=== PATIENT | female | born 2005 | race Caucasian/White ===

== ENCOUNTER 2023-02-21 15:02 | Emergency (ER) | payer BC, SELFPAY ==
--- NOTE | ~2023-02-21 | CT_ITS ---
EXAMINATION: CT ABDOMEN AND PELVIS WITH CONTRAST CLINICAL INFORMATION: Periumbilical/suprapubic/right lower quadrant abdominal pain. COMPARISON: None available. TECHNIQUE: Multidetector volumetric images were obtained from the superior aspect of the liver through the pubic symphysis following administration 85 mL of Omnipaque 350 intravenous contrast. Sagittal and coronal reformatted images were obtained on the technologist's workstation. Oral contrast: No This CT examination was performed using dose optimization techniques as appropriate, variously including the following: *Automated exposure control *Adjustment of mA and/or kV according to patient size (this includes techniques or standardized protocols for targeted exams where dose is matched to indication/reason for exam; i.e. extremities or head) *Use of iterative reconstruction technique DLP: 776 mGy-cm FINDINGS: LUNG BASES: No focal consolidation or pleural effusion. LIVER, GALLBLADDER, AND BILIARY TREE: The liver is normal in size, shape, and attenuation. No focal hepatic lesion or biliary ductal dilatation is present. The gallbladder is unremarkable with no evidence of radiopaque gallstones, gallbladder wall thickening, or obvious pericholecystic inflammatory changes. PANCREAS: Unremarkable. SPLEEN: Unremarkable. ADRENAL GLANDS: Unremarkable. KIDNEYS AND URETERS: Equivocal very subtle asymmetric hypoattenuation of the renal parenchyma in the lateral interpolar right kidney. No nephrolithiasis or hydronephrosis. No significant perinephric fat stranding. BLADDER: Unremarkable. GASTROINTESTINAL TRACT: The small and large bowel are unremarkable. The appendix is unremarkable. ABDOMINAL WALL: No significant hernia is appreciated. LYMPH NODES: Normal. VASCULAR: Unremarkable. PELVIC VISCERA: Unremarkable. OSSEOUS STRUCTURES: Unremarkable. CT/CT abdomen pelvis w IV con IMPRESSION: 1. Equivocal very subtle asymmetric hypoattenuation of the renal parenchyma in the lateral interpolar right kidney. Correlate clinically for pyelonephritis. 2. Otherwise, normal examination.
--- NOTE | ~2023-02-21 | US_ITS ---
EXAMINATION: US PELVIS CLINICAL INFORMATION: Lower abdominal pain. COMPARISON: None available. TECHNIQUE: Ultrasound of the pelvis is performed using both transabdominal and transvaginal transducers along with Doppler. Transvaginal imaging is performed due to inadequate visualization transabdominally. FINDINGS: Uterus: The uterus is anteverted and measures 9.8 x 3.4 x 3.9 cm. The double wall endometrial thickness is 4 mm. The uterus is smooth in contour and has normal myometrial echogenicity. No visible fibroid. Adnexa: Both ovaries are visualized. There is normal color flow to the adnexa. There is no ovarian torsion. There is no pelvic ascites or fluid collection. Right ovary measures 4.3 x 2.2 x 2.5 cm. Volume of 12.4 mL. Left ovary measures 4.0 x 2.9 x 3.0 cm. Volume of 18 mL. US/US pelvic and transvaginal IMPRESSION: No acute sonographic abnormalities to explain the patient's symptoms.
--- NOTE | ~2023-02-21 | US_ITS ---
EXAMINATION: US PELVIS CLINICAL INFORMATION: Lower abdominal pain. COMPARISON: None available. TECHNIQUE: Ultrasound of the pelvis is performed using both transabdominal and transvaginal transducers along with Doppler. Transvaginal imaging is performed due to inadequate visualization transabdominally. FINDINGS: Uterus: The uterus is anteverted and measures 9.8 x 3.4 x 3.9 cm. The double wall endometrial thickness is 4 mm. The uterus is smooth in contour and has normal myometrial echogenicity. No visible fibroid. Adnexa: Both ovaries are visualized. There is normal color flow to the adnexa. There is no ovarian torsion. There is no pelvic ascites or fluid collection. Right ovary measures 4.3 x 2.2 x 2.5 cm. Volume of 12.4 mL. Left ovary measures 4.0 x 2.9 x 3.0 cm. Volume of 18 mL. US/US pelvic ovarian doppler IMPRESSION: No acute sonographic abnormalities to explain the patient's symptoms.
[2023-02-21 15:39] VITALS: BP 129/81; PULSE 85; RESP 16; TEMP 36.7; O2SAT 99; BMI 36.6
--- NOTE | 2023-02-21 15:42 | ED.ABDPAIN ---
HPI - Abdominal Pain General Chief Complaint: Abdominal Pain <ERIN Brito Last Filed: 02/21/23 15:46> Stated Complaint: Severe abd pain <ERIN Brito Last Filed: 02/21/23 15:46> Time Seen by Provider: 02/21/23 18:36 <ERIN Brito Last Filed: 02/21/23 15:46> Source: patient <ERIN Donald Last Filed: 02/21/23 21:31> Mode of arrival: ambulatory <ERIN Donald Last Filed: 02/21/23 21:31> Limitations: no limitations <ERIN Donald Last Filed: 02/21/23 21:31> History of Present Illness HPI narrative: 17-year-old female history of obesity presents with complaints of nausea,, vomiting, anorexia, abdominal pain x3 days progressively worsening. Pain started in the epigastric region and has migrated to the right lower abdomen. Patient tells me pain is worse after eating and if she presses on her stomach. Patient still has her gallbladder and her appendix. No known sick contacts. Denies chest pain, shortness of breath, fevers, chills, hematemesis, hematochezia, melena, bright red blood per rectum, changes in bowel habits or urination. Denies chance of the . Last menstrual period ended 2 days ago. <ERIN Donald Last Filed: 02/21/23 21:31> Related Data Home Medications: Previous Rx's Medication Instructions Recorded cefuroxime axetil 250 mg tablet 250 mg PO BID 7 days #14 tabs 02/21/23 <ERIN rBito Last Filed: 02/21/23 15:46> Allergies/Adverse Reactions: Allergies Allergy/AdvReac Type Severity Reaction Status Date / Time No Known Allergies Allergy Verified 02/21/23 15:44 <ERIN Brito Last Filed: 02/21/23 15:46> Review of Systems Review of Systems Constitutional : No Weight loss, No Fever, No Chills, No Fatigue, No Malaise ENT/Mouth : No sore throat, No Rhinorrhea Eyes: No Eye Pain, No Swelling, No Redness Cardiovascular : No Chest Pain, No SOB, No Dyspnea on Exertion, No Orthopnea, No Edema, No Palpitations Respiratory : No Cough, No Sputum, No Wheezing Gastrointestinal : No Nausea, No Vomiting, No Diarrhea, No Constipation, No abdominal Pain, No Hematochezia, No Melena Genitourinary : No Dysuria, No Urinary Frequency, No Hematuria, Musculoskeletal : No joint pain, No Myalgias, No Joint Swelling Skin : No Skin Lesions, No rash Neuro : No Weakness, No Numbness, No Dizziness, No Headache Psych : No Anxiety/Panic, No Depression Heme/Lymph: No Bruising, No Bleeding,No Lymphadenopathy Endocrine : No Polyuria, No Polydipsia All other systems reviewed and are negative <ERIN Donald - Last Filed: 02/21/23 21:31> Yes all other systems are reviewed and are negative <ERIN Donald - Last Filed: 02/21/23 21:31> FORMERLY [facility] Past Medical History Attestation statement: The following information was validated with the patient. <ERIN Donald - Last Filed: 02/21/23 21:31> Source: old records reviewed and nursing notes reviewed <ERIN Donald - Last Filed: 02/21/23 21:31> Social History Social History: Social History Advance Directives: No Advance Directives Information Provided: No <ERIN Brito - Last Filed: 02/21/23 15:46> Physical Exam ED Vital Signs: Vital Signs - 24 hr 02/21/23 15:39 Temperature 98.1 F Pulse Rate 85 Respiratory Rate 16 Blood Pressure 129/81 Pulse Oximetry 99 Oxygen Delivery Method Room Air BMI result Body Mass Index 36.6 <ERIN Brito - Last Filed: 02/21/23 15:46> Vital Signs - 24 hr 02/21/23 15:39 Temperature 98.1 F Pulse Rate 85 Respiratory Rate 16 Blood Pressure 129/81 Pulse Oximetry 99 Oxygen Delivery Method Room Air BMI result Body Mass Index 36.6 Vital signs stable <ERIN Donald - Last Filed: 02/21/23 21:31> Appearance: Alert.? Oriented X3.? No acute distress.? Head: Normocephalic, atraumatic, no step-offs or deformities Eyes: Pupils equal, round and reactive to light.? ENT: Pharynx normal.? Neck: Normal inspection.? Neck supple.? CVS: Normal heart rate and rhythm.? Pulses normal.? Respiratory: No respiratory distress.? Breath sounds normal.? Abdomen: Soft and tenderness to palpation to left lower quadrant and right lower quadrant, left lower quadrant greater than right lower quadrant. Negative psoas, obturator, Rovsing, Lang's,. Normoactive bowel sounds Skin: Skin warm and dry.? Normal skin color.? Normal skin turgor.? Extremities: No lower extremity edema.? No calf ttp. 5/5 strength to bilateral upper and lower extremities Back; No CVA tenderness Neuro: Oriented X 3.? No motor deficit.? No sensory deficit. CN 2-12 intact <ERIN Donald Last Filed: 02/21/23 21:31> Course Course Course Narrative: RME: 17-year-old female with no significant past medical history presenting to the ED complaining of periumbilical abdominal pain now localized to RLQ x 3 days with associated nausea/vomiting and diarrhea Abdomen soft with lower/RLQ tenderness, no rebound or guarding Labs, UA, , CT AP ordered Full HPI, ROS and PE to be performed by primary ED provider. <ERIN Brito Last Filed: 02/21/23 15:46> Reevaluation(s) Reevaluation #1: CBC within normal limits. Chemistry with no acute findings requiring intervention. UA with moderate leukocyte esterases and trace bacteria, possible UTI, CT of the abdomen pelvis with very subtle asymmetric hypoattenuation of the renal parenchyma on the left interpolar right kidney, which could be consistent with pyelonephritis however on exam there is no findings concerning for pyelonephritis. Due to CT findings and slightly positive urine will treat patient for urinary tract infection. No signs of appendicitis on exam or diverticulitis. Pelvic ultrasound pending <ERIN Donald Last Filed: 02/21/23 21:31> Time: 21:12 <ERIN Donald Last Filed: 02/21/23 21:31> Reevaluation #2: Ultrasound pelvic and transvaginal with no acute sonographic abnormalities to explain patient's symptoms. No signs of torsion. No free fluid in the pelvis. Unlikely ruptured ovarian cyst, torsion, no signs of ectopic . This is likely a urinary tract infection. Patient to be treated with p.o. antibiotics will have her follow-up with PCP. Educated patient on diagnosis and treatment plan, answered all question, patient verbalizes understanding. At this time patient will be discharged home, advised to return with new or worsening symptoms. Educated on worrisome signs and symptoms and when to return. At this time I feel comfortable discharge home. <ERIN Donald - Last Filed: 02/21/23 21:31> Time: 21:30 <ERIN Donald - Last Filed: 02/21/23 21:31> Medical Decision Making Medical Decision Making MDM Narrative: 1900 17-year-old female presents for evaluation of nausea, vomiting, anorexia, lower abdominal pain started 3 days ago progressively worsening. Still has appendix and gallbladder Physical exam significant for Soft and tenderness to palpation to left lower quadrant and right lower quadrant, left lower quadrant greater than right lower quadrant. Negative psoas, obturator, Rovsing, Lang's,. Normoactive bowel sounds Will rule appendicitis and other intra-abdominal etiologies such as diverticulitis, pancreatitis, cholecystitis. Less likely ovarian torsion or ectopic . Other differentials include viral illness/gastroenteritis, UTI At this time labs, imaging, urine. <ERIN Donald Last Filed: 02/21/23 21:31> Differential Diagnosis Differential Diagnoses: The differential diagnosis associated with the presentation includes <ERIN Donald Last Filed: 02/21/23 21:31> Will rule appendicitis and other intra-abdominal etiologies such as diverticulitis, pancreatitis, cholecystitis. Less likely ovarian torsion or ectopic . Other differentials include viral illness/gastroenteritis, UTI <ERIN Donald Last Filed: 02/21/23 21:31> Admission/Observation Consideration of admission/observation: Escalation of care including admission/observation considered <ERIN Donald Last Filed: 02/21/23 21:31> Unlikely <ERIN Donald Last Filed: 02/21/23 21:31> Lab Data MDM Lab Attestation statement: I reviewed the patient's lab results. <ERIN Donald - Last Filed: 02/21/23 21:31> Result Diagrams: 02/21/23 16:24 02/21/23 16:24 <ERIN Brito - Last Filed: 02/21/23 15:46> Labs: Lab Results 02/21/23 02/21/23 02/21/23 Range/Units 16:24 16:24 16:25 WBC 8.4 (4.8-10.8) X10*3/uL RBC 4.70 (4.20-5.50) X10*6/uL Hgb 13.4 (12.0-16.0) g/dl Hct 39.7 (37.0-47.0) % MCV 84.5 (80.0-98.0) fL MCH 28.5 (27.0-33.0) pg MCHC 33.8 (31.0-35.0) g/dl RDW 11.6 (11.0-16.0) % Plt Count 297 (160-400) X10*3/uL MPV 10.1 (9.4-12.3) fL Immature Gran % (Auto) 0.4 (0.0-0.4) % Neut % (Auto) 65.0 (45-73) % Lymph % (Auto) 26.8 (20-40) % [place] % (Auto) 5.9 (2-11) % Eos % (Auto) 1.5 (0-4) % Baso % (Auto) 0.4 (0-2) % Lymph # (Auto) 2.3 (1.2-4.9) X10*3/uL [place] # (Auto) 0.5 (0.1-1.2) X10*3/uL Eos # (Auto) 0.1 (0.0-0.4) X10*3/uL Baso # (Auto) 0.0 (0.0-0.2) X10*3/uL Abs Immat Gran (auto) 0.03 (0.00-0.03) X10*3/uL Absolute Neuts (auto) 5.5 (2.0-8.3) x10*3/uL Absolute Nucleated RBC 0.000 (0.0-0.012) X10*3/uL Nucleated RBC % (auto) 0.0 (0.0-0.2) /100WBC Sodium 141 (135-145) mmol/L Potassium 4.6 (3.3-5.1) mmol/L Chloride 109 H (96-108) mmol/L Carbon Dioxide 25 (22-29) mmol/L Anion Gap 12 (12-20) BUN 13 (9-16) mg/dL Creatinine 0.76 (0.5-1.4) mg/dL Estim Creat Clear Calc 144.2 Estimated GFR > 60 Random Glucose 127 H (60-115) mg/dL Calcium 9.3 (8.4-10.2) mg/dL Magnesium 2.0 (1.6-2.6) mg/dL Total Bilirubin 0.5 (0.0-1.0) mg/dL Direct Bilirubin 0.2 (0.0-0.5) mg/dL AST 18 (5-31) U/L ALT 20 (0-31) U/L Alkaline Phosphatase 64 (39-117) U/L Total Protein 7.3 (6.5-8.0) g/dL Albumin 4.4 (3.5-5.0) g/dL Lipase 15 (8-78) U/L Urine Color Yellow Urine Appearance Clear Urine pH 6.5 (5.0-9.0) Ur Specific [place] 1.020 (1.005-1.025) Urine Protein Negative (Neg-Trace) mg/dL Urine Glucose (UA) Negative (Negative) mg/dL Urine Ketones Negative (Negative) mg/dL Urine Blood Negative (Negative) Urine Nitrite Negative (Negative) Ur Leukocyte Esterase Moderate (2+) H (Negative) Urine RBC 0-2 (0-2) /HPF Urine WBC 0-5 (0-5) /HPF Ur Squamous Epith Cells 3-5 (0-2) /HPF Urine Bacteria Trace (None Seen) Hyaline Casts 0-2 (0-2) /LPF Urine Test (NEGATIVE) 02/21/23 Range/Units 16:25 WBC (4.8-10.8) X10*3/uL RBC (4.20-5.50) X10*6/uL Hgb (12.0-16.0) g/dl Hct (37.0-47.0) % MCV (80.0-98.0) fL MCH (27.0-33.0) pg MCHC (31.0-35.0) g/dl RDW (11.0-16.0) % Plt Count (160-400) X10*3/uL MPV (9.4-12.3) fL Immature Gran % (Auto) (0.0-0.4) % Neut % (Auto) (45-73) % Lymph % (Auto) (20-40) % [place] % (Auto) (2-11) % Eos % (Auto) (0-4) % Baso % (Auto) (0-2) % Lymph # (Auto) (1.2-4.9) X10*3/uL [place] # (Auto) (0.1-1.2) X10*3/uL Eos # (Auto) (0.0-0.4) X10*3/uL Baso # (Auto) (0.0-0.2) X10*3/uL Abs Immat Gran (auto) (0.00-0.03) X10*3/uL Absolute Neuts (auto) (2.0-8.3) x10*3/uL Absolute Nucleated RBC (0.0-0.012) X10*3/uL Nucleated RBC % (auto) (0.0-0.2) /100WBC Sodium (135-145) mmol/L Potassium (3.3-5.1) mmol/L Chloride (96-108) mmol/L Carbon Dioxide (22-29) mmol/L Anion Gap (12-20) BUN (9-16) mg/dL Creatinine (0.5-1.4) mg/dL Estim Creat Clear Calc Estimated GFR Random Glucose (60-115) mg/dL Calcium (8.4-10.2) mg/dL Magnesium (1.6-2.6) mg/dL Total Bilirubin (0.0-1.0) mg/dL Direct Bilirubin (0.0-0.5) mg/dL AST (5-31) U/L ALT (0-31) U/L Alkaline Phosphatase (39-117) U/L Total Protein (6.5-8.0) g/dL Albumin (3.5-5.0) g/dL Lipase (8-78) U/L Urine Color Urine Appearance Urine pH (5.0-9.0) Ur Specific [place] (1.005-1.025) Urine Protein (Neg-Trace) mg/dL Urine Glucose (UA) (Negative) mg/dL Urine Ketones (Negative) mg/dL Urine Blood (Negative) Urine Nitrite (Negative) Ur Leukocyte Esterase (Negative) Urine RBC (0-2) /HPF Urine WBC (0-5) /HPF Ur Squamous Epith Cells (0-2) /HPF Urine Bacteria (None Seen) Hyaline Casts (0-2) /LPF Urine Test NEGATIVE (NEGATIVE) <ERIN Brito - Last Filed: 02/21/23 15:46> Lab Results 02/21/23 02/21/23 02/21/23 Range/Units 16:24 16:24 16:25 WBC 8.4 (4.8-10.8) X10*3/uL RBC 4.70 (4.20-5.50) X10*6/uL Hgb 13.4 (12.0-16.0) g/dl Hct 39.7 (37.0-47.0) % MCV 84.5 (80.0-98.0) fL MCH 28.5 (27.0-33.0) pg MCHC 33.8 (31.0-35.0) g/dl RDW 11.6 (11.0-16.0) % Plt Count 297 (160-400) X10*3/uL MPV 10.1 (9.4-12.3) fL Immature Gran % (Auto) 0.4 (0.0-0.4) % Neut % (Auto) 65.0 (45-73) % Lymph % (Auto) 26.8 (20-40) % [place] % (Auto) 5.9 (2-11) % Eos % (Auto) 1.5 (0-4) % Baso % (Auto) 0.4 (0-2) % Lymph # (Auto) 2.3 (1.2-4.9) X10*3/uL [place] # (Auto) 0.5 (0.1-1.2) X10*3/uL Eos # (Auto) 0.1 (0.0-0.4) X10*3/uL Baso # (Auto) 0.0 (0.0-0.2) X10*3/uL Abs Immat Gran (auto) 0.03 (0.00-0.03) X10*3/uL Absolute Neuts (auto) 5.5 (2.0-8.3) x10*3/uL Absolute Nucleated RBC 0.000 (0.0-0.012) X10*3/uL Nucleated RBC % (auto) 0.0 (0.0-0.2) /100WBC Sodium 141 (135-145) mmol/L Potassium 4.6 (3.3-5.1) mmol/L Chloride 109 H (96-108) mmol/L Carbon Dioxide 25 (22-29) mmol/L Anion Gap 12 (12-20) BUN 13 (9-16) mg/dL Creatinine 0.76 (0.5-1.4) mg/dL Estim Creat Clear Calc 144.2 Estimated GFR > 60 Random Glucose 127 H (60-115) mg/dL Calcium 9.3 (8.4-10.2) mg/dL Magnesium 2.0 (1.6-2.6) mg/dL Total Bilirubin 0.5 (0.0-1.0) mg/dL Direct Bilirubin 0.2 (0.0-0.5) mg/dL AST 18 (5-31) U/L ALT 20 (0-31) U/L Alkaline Phosphatase 64 (39-117) U/L Total Protein 7.3 (6.5-8.0) g/dL Albumin 4.4 (3.5-5.0) g/dL Lipase 15 (8-78) U/L Urine Color Yellow Urine Appearance Clear Urine pH 6.5 (5.0-9.0) Ur Specific [place] 1.020 (1.005-1.025) Urine Protein Negative (Neg-Trace) mg/dL Urine Glucose (UA) Negative (Negative) mg/dL Urine Ketones Negative (Negative) mg/dL Urine Blood Negative (Negative) Urine Nitrite Negative (Negative) Ur Leukocyte Esterase Moderate (2+) H (Negative) Urine RBC 0-2 (0-2) /HPF Urine WBC 0-5 (0-5) /HPF Ur Squamous Epith Cells 3-5 (0-2) /HPF Urine Bacteria Trace (None Seen) Hyaline Casts 0-2 (0-2) /LPF Urine Test (NEGATIVE) 02/21/23 Range/Units 16:25 WBC (4.8-10.8) X10*3/uL RBC (4.20-5.50) X10*6/uL Hgb (12.0-16.0) g/dl Hct (37.0-47.0) % MCV (80.0-98.0) fL MCH (27.0-33.0) pg MCHC (31.0-35.0) g/dl RDW (11.0-16.0) % Plt Count (160-400) X10*3/uL MPV (9.4-12.3) fL Immature Gran % (Auto) (0.0-0.4) % Neut % (Auto) (45-73) % Lymph % (Auto) (20-40) % [place] % (Auto) (2-11) % Eos % (Auto) (0-4) % Baso % (Auto) (0-2) % Lymph # (Auto) (1.2-4.9) X10*3/uL [place] # (Auto) (0.1-1.2) X10*3/uL Eos # (Auto) (0.0-0.4) X10*3/uL Baso # (Auto) (0.0-0.2) X10*3/uL Abs Immat Gran (auto) (0.00-0.03) X10*3/uL Absolute Neuts (auto) (2.0-8.3) x10*3/uL Absolute Nucleated RBC (0.0-0.012) X10*3/uL Nucleated RBC % (auto) (0.0-0.2) /100WBC Sodium (135-145) mmol/L Potassium (3.3-5.1) mmol/L Chloride (96-108) mmol/L Carbon Dioxide (22-29) mmol/L Anion Gap (12-20) BUN (9-16) mg/dL Creatinine (0.5-1.4) mg/dL Estim Creat Clear Calc Estimated GFR Random Glucose (60-115) mg/dL Calcium (8.4-10.2) mg/dL Magnesium (1.6-2.6) mg/dL Total Bilirubin (0.0-1.0) mg/dL Direct Bilirubin (0.0-0.5) mg/dL AST (5-31) U/L ALT (0-31) U/L Alkaline Phosphatase (39-117) U/L Total Protein (6.5-8.0) g/dL Albumin (3.5-5.0) g/dL Lipase (8-78) U/L Urine Color Urine Appearance Urine pH (5.0-9.0) Ur Specific [place] (1.005-1.025) Urine Protein (Neg-Trace) mg/dL Urine Glucose (UA) (Negative) mg/dL Urine Ketones (Negative) mg/dL Urine Blood (Negative) Urine Nitrite (Negative) Ur Leukocyte Esterase (Negative) Urine RBC (0-2) /HPF Urine WBC (0-5) /HPF Ur Squamous Epith Cells (0-2) /HPF Urine Bacteria (None Seen) Hyaline Casts (0-2) /LPF Urine Test NEGATIVE (NEGATIVE) <ERIN Donald - Last Filed: 02/21/23 21:31> Independent Interpretation I performed an independent interpretation of an: CT Scan <ERIN Donald - Last Filed: 02/21/23 21:31> Radiology Impression Discussion of test interpretation with radiology: I have reviewed the radiologist's reading. <ERIN Donald - Last Filed: 02/21/23 21:31> Medications Administered Discontinued Medications Generic Name Dose Route Start Last Admin Trade Name Freq PRN Reason Stop Dose Admin Iohexol 100 ml 02/21/23 19:13 02/21/23 19:13 Iohexol 350 Mg/Ml 100 Ml Infus..Btl IV 02/21/23 19:14 85 ml ONCE ONE Administration <ERIN Brito - Last Filed: 02/21/23 15:46> Medications Administered Discontinued Medications Generic Name Dose Route Start Last Admin Trade Name Freq PRN Reason Stop Dose Admin Iohexol 100 ml 02/21/23 19:13 02/21/23 19:13 Iohexol 350 Mg/Ml 100 Ml Infus..Btl IV 02/21/23 19:14 85 ml ONCE ONE Administration <ERIN Donald Last Filed: 02/21/23 21:31> Critical Care Time Critical Care Time Critical Care Time: No <ERIN Donald Last Filed: 02/21/23 21:31> Discharge Plan Discharge Clinical Impression: UTI (urinary tract infection), Abdominal pain, Nausea & vomiting <ERIN Brito Last Filed: 02/21/23 15:46> Patient Disposition: Home, Self-Care <ERIN Brito Last Filed: 02/21/23 15:46> Instructions: Urinary Tract Infection in Women (ED), Acute Nausea and Vomiting (ED) <ERIN Brito Last Filed: 02/21/23 15:46> Additional Instructions: Take your medications as prescribed. If you were prescribed antibiotics today, it is important that you take your medication to their entirety, do not skip any doses, do not finish them early. Follow-up with your primary care provider this week. Return to the emergency department with new or worsening symptoms. Such as fevers, chills, chest pain, shortness of breath, nausea, vomiting, dizziness, headache, vision changes, lethargy In case of emergency call 911 Zofran has been sent to your pharmacy for nausea and vomiting, take this as prescribed. Antibiotics sent for mild UTI. CT/CT abdomen pelvis w IV con IMPRESSION: ? 1.? Equivocal very subtle asymmetric hypoattenuation of the renal parenchyma in the lateral interpolar right kidney. Correlate clinically for pyelonephritis. 2.? Otherwise, normal examination. <ERIN Brito Last Filed: 02/21/23 15:46> Prescriptions: New cefuroxime axetil 250 mg tablet 250 mg PO BID 7 Days Qty: 14 0RF <ERIN Brito Last Filed: 02/21/23 15:46> Referrals: Physician,Unknown J [Primary Care Provider] - 2 days <ERIN Brito Last Filed: 02/21/23 15:46> Stand Alone Forms: Work/School Release <ERIN Brito Last Filed: 02/21/23 15:46>
[2023-02-21 16:33] LABS: MANUAL DIFF FLAG NO
[2023-02-21 16:38] LABS: Appearance Urine Clear; Color Urine Yellow; Glucose Urine UA Negative (Negative); Leukocyte Esterase Urine Moderate (2+) (Negative); Nitrite Urine Negative (Negative); PH 6.5 (5.0-9.0); UMIC TRIGGER UACC YES; Urine Blood Negative (Negative); Urine Ketones Negative (Negative); Urine Protein Negative (Neg-Trace)
[2023-02-21 16:40] LABS: UPreg QC Valid YES; Urine Pregnancy NEGATIVE (NEGATIVE)
[2023-02-21 16:44] LABS: Bacteria Urine Trace (None Seen); Hyaline Casts Urine 0-2 /LPF (0-2); RBC Urine 0-2 /HPF (0-2); WBC Urine 0-5 /HPF (0-5)
[2023-02-21 16:45] LABS: Basophils Percent Auto 0.4 % (0-2); Eosinophils Absolute Auto 0.1 X10*3/uL (0.0-0.4); Eosinophils Percent Auto 1.5 % (0-4); Hematocrit 39.7 % (37.0-47.0); Hemoglobin 13.4 g/dl (12.0-16.0); Imm Gran Abs Auto 0.03 X10*3/uL (0.00-0.03); Imm Gran Pct Auto 0.4 % (0.0-0.4); Lymphocytes Absolute Auto 2.3 X10*3/uL (1.2-4.9); Lymphocytes Percent Auto 26.8 % (20-40); Mean Corpuscular HGB Conc 33.8 g/dl (31.0-35.0); Mean Corpuscular Hemoglobin 28.5 pg (27.0-33.0); Mean Corpuscular Volume 84.5 fL (80.0-98.0); Mean Platelet Volume 10.1 fL (9.4-12.3); Monocytes Absolute Auto 0.5 X10*3/uL (0.1-1.2); Monocytes Percent Auto 5.9 % (2-11); Neutrophils Absolute Auto 5.5 x10*3/uL (2.0-8.3); Platelet Count 297 X10*3/uL (160-400); Red Cell Distribution Width 11.6 % (11.0-16.0); White Blood Count 8.4 X10*3/uL (4.8-10.8)
[2023-02-21 16:57] LABS: Alanine Aminotransferase 20 U/L (0-31); Albumin Level 4.4 g/dL (3.5-5.0); Alkaline Phosphatase 64 U/L (39-117); Anion Gap 12 (12-20); Aspartate Amino Transferase 18 U/L (5-31); Bilirubin Direct 0.2 mg/dL (0.0-0.5); Bilirubin Total 0.5 mg/dL (0.0-1.0); Blood Urea Nitrogen 13 mg/dL (9-16); Calcium 9.3 mg/dL (8.4-10.2); Carbon Dioxide 25 mmol/L (22-29); Chloride 109 mmol/L (96-108); Creatinine Clr Calc Pharmacy 144.2; Estimated Glomerular Filt Rate > 60; Glucose Random 127 mg/dL (60-115); Lipase 15 U/L (8-78); Potassium 4.6 mmol/L (3.3-5.1); Sodium 141 mmol/L (135-145); Total Protein 7.3 g/dL (6.5-8.0)
[2023-02-21] MEDS: iohexoL 350 MG/ML 100 ML INFUS..BTL IV (19:13)
[2023-02-21] MEDS: ondansetron HCL 4 MG/2 ML VIAL IVPUSH (21:31)
[2023-02-21 22:04] VITALS: BP 111/72; PULSE 76; RESP 18; TEMP 35.8; O2SAT 98
[2023-02-21] MEDS: Ketorolac Tromethamine 15 MG/ML VIAL 30 MG IVPUSH (22:04)
== END 2023-02-21 22:41 | disposition home or self-care (01) ==
PROVIDERS: Physician Assistant; Emergency Provider Emergency Medicine
DX: N39.0 Urinary tract infection, site not specified (principal); R10.31 Right lower quadrant pain; R10.33 Periumbilical pain; Z79.899 Other long term (current) drug therapy
CPT/HCPCS: 36415; 74177; 76830; 76856; 80048; 80076; 81001; 81025; 83690; 83735; 85025; 93975; 96361; 96374; 96375; 99284; J1885; J2405; Q9967